=== PATIENT | female | born 1935 | race Asian ===

== ENCOUNTER 2020-12-14 14:59 | Inpatient (IN) | payer MEDICARE, OTHER ==
[~2020-12-14] VITALS: Ht 167.6 cm; Wt 69.9 kg
--- NOTE | 2020-12-14 15:42 | NUR ---
Called Lab for Covid rapid test
[2020-12-14 16:20] LABS: BILIRUBIN,URINE SMALL (NEGATIVE); COLOR,URINE YELLOW (YELLOW); LEUKOCYTE ESTERASE ,URINE MODERATE (NEGATIVE); NITRITE, URINE NEGATIVE (NEGATIVE); PH,URINE 5.5 (5.0-8.0); PROTEIN,URINE NEGATIVE (NEGATIVE); UGLUCOSE 100 MG/DL mg/dL (NEGATIVE); UROBILINOGEN,URINE 0.2 EU/dL (0.2)
[2020-12-14] MEDS ORDERED: ATOR40TA PO (16:22)
[2020-12-14] MEDS ORDERED: LEVE500T9 PO (16:22)
[2020-12-14] MEDS ORDERED: MAG355OR18 PO (16:22)
[2020-12-14] MEDS ORDERED: CYCL30DR OP (16:22)
[2020-12-14] MEDS ORDERED: MULT-447 PO (16:22)
[2020-12-14] MEDS ORDERED: MAGN400O6 PO (16:22)
[2020-12-14] MEDS ORDERED: ASCO500C17 PO (16:22)
[2020-12-14] MEDS ORDERED: CALC-1159 PO (16:22)
[2020-12-14] MEDS ORDERED: INSU100V9 IJ (16:22)
[2020-12-14] MEDS ORDERED: MEMA10TA PO (16:22)
[2020-12-14] MEDS ORDERED: ACET325T53 PO (16:22)
[2020-12-14] MEDS ORDERED: ESCI10TA PO (16:22)
[2020-12-14] MEDS ORDERED: DEXA4TAB PO (16:22)
[2020-12-14] MEDS ORDERED: VALS40TA4 PO (16:22)
[2020-12-14] MEDS ORDERED: POLY17PO4 PO (16:22)
[2020-12-14] MEDS ORDERED: RIFA300C4 PO (16:22)
[2020-12-14] MEDS ORDERED: DOCU-141 PO (16:22)
[2020-12-14] MEDS ORDERED: MELA3TAB41 PO (16:22)
[2020-12-14] MEDS ORDERED: ETHA400T8 PO (16:22)
[2020-12-14] MEDS ORDERED: CRAN400C PO (16:22)
[2020-12-14] MEDS ORDERED: AMLO5TAB4 PO (16:22)
[2020-12-14] MEDS ORDERED: QUET25TA PO ×2 (16:22)
[2020-12-14] MEDS ORDERED: AZIT500T PO (16:22)
[2020-12-14] MEDS ORDERED: ASPI-1169 PO (16:22)
[2020-12-14] MEDS ORDERED: INSU100V7 SQ (16:22)
[2020-12-14] MEDS ORDERED: PROP80CA51 PO (16:22)
[2020-12-14 16:26] LABS: BACTERIA,URINE 4+ /HPF (None Seen); SQUAMOUS EPITHELIAL CELL,UR Few /HPF (None Seen); WBC,URINE TOO NUMEROUS TO COUN /HPF (0-3)
[2020-12-14 16:27] LABS: YEAST,URINE Few /HPF (None Seen)
[2020-12-14 17:21] LABS: BASOPHILS # (AUTO) 0.1 K/uL (0.0-0.2); BASOPHILS % (AUTO) 0.8 % (0.0-2.0); EOSINOPHILS % (AUTO) 0.9 % (0.0-6.0); HEMATOCRIT 44 % (33-45); HEMOGLOBIN 14.7 g/dL (11.5-14.8); LYMPHOCYTES # (AUTO) 1.9 K/uL (0.8-4.8); LYMPHOCYTES % (AUTO) 26.7 % (20.0-44.0); MEAN CORPUSCULAR HGB CONC 34 g/dl (31.0-36.0); MEAN CORPUSCULAR VOLUME 96 fL (82-100); MONOCYTES # (AUTO) 0.7 K/uL (0.1-1.30); MONOCYTES % (AUTO) 10.3 % (2.0-12.0); NEUTROPHILS # (AUTO) 4.3 K/uL (1.8-8.9); NEUTROPHILS % (AUTO) 61.3 % (43.0-81.0); PLATELET COUNT (AUTO) 145 K/uL (150-450); RED BLOOD CELL COUNT(AUTO) 4.54 MIL/uL (4.0-5.2)
[2020-12-14 17:29] LABS: CALCIUM, SERUM 8.4 mg/dL (8.5-10.1); CARBON DIOXIDE 31 mmol/L (21-32); CHLORIDE 102 mmol/L (98-107); CREATININE 0.6 mg/dL (0.6-1.3); GLUCOSE 204 mg/dL (74-106); POTASSIUM 3.5 mmol/L (3.5-5.1); SODIUM SERUM 142 mmol/L (136-145); UREA NITROGEN, BLOOD 15 mg/dL (7-18)
[2020-12-14] MEDS ORDERED: CEFTRIAXONE 1 G in IV D5W 50 ML IV ONE (17:30)
[2020-12-14] MEDS ORDERED: IV NS 0.9% 1,000 ML IV ONE (17:30)
--- NOTE | 2020-12-14 17:46 | NUR ---
SOLITARIO FROM [facility] C/O INCREASED CONFUSION AND AGITATION REFUSED ALL PATIENT CARE. THE PATIENT IS NOTED SCREAMING WITHOUT APPARENT REASON. THE PATIENT IS ALERT AND ORIENTED TO SELF. RESPIRATION REGULAR AND UNLABORED. DENIES PAIN. THE PATIENT IS IN NO APPARENT DISTRESS. ATTACHED TO THE MONITOR. WARM BLANKET PROVIDED FOR COMFORT. WILL CONTINUE TO MONITOR THE PATIENT.
[2020-12-14 17:50] LABS: ALANINE AMINOTRANSFERASE 61 U/L (12-78); ALBUMIN 3.1 g/dL (3.4-5.0); ALKALINE PHOSPHATASE 44 U/L (46-116); ASPARTATE AMINOTRANSFERASE 38 U/L (15-37); BILIRUBIN,DIRECT 0.2 mg/dL (0.0-0.2); BILIRUBIN,TOTAL 0.5 mg/dL (0.2-1.0); TOTAL PROTEIN, SERUM 6.5 g/dL (6.4-8.2)
[2020-12-14 17:56] LABS: ACETAMINOPHEN < 10 ug/ml (10-30); ALCOHOL, BLOOD < 3 mg/dL (0-0)
[2020-12-14] MEDS ORDERED: CEFTRIAXONE 1GM BAG (ER ONLY) 50 ML IV ONE (18:04)
[2020-12-14] MEDS ORDERED: QUETIAPINE FUMARATE 25 MG TABLET PO STA (18:30)
[2020-12-14] MEDS ORDERED: LORAZEPAM 1 MG TABLET PO ONE (18:30)
[2020-12-14] MEDS ORDERED: ASPIRIN 300 MG/SUPP.RECT RC ONE (18:30)
[2020-12-14] MEDS ORDERED: LORAZEPAM 0.5 MG TABLET ONE (18:41)
--- NOTE | 2020-12-14 19:10 | NUR ---
REPORT GIVEN TO NURSE JOHNSON FOR LC
--- NOTE | 2020-12-14 19:10 | NUR ---
PT PLACED ON 2L O2 NC FOR COMFORT SATURATING 98%
[2020-12-14] MEDS ORDERED: IV NS 0.9% 250 ML IV ONE (20:37)
[2020-12-14] MEDS ORDERED: IOHEXOL-350 100 ML VIAL IV ONE (20:37)
[2020-12-14] MEDS ORDERED: POLYETHYLENE GLYCOL 3350 17 GM POWD.PACK PO PRN (21:30)
[2020-12-14] MEDS ORDERED: Z GUARD REMEDY 2 OZ OINT TP PRN (21:30)
[2020-12-14] MEDS ORDERED: ONDANSETRON HCL/PF 4 MG/2 ML VIAL IVP PRN (21:30)
[2020-12-14] MEDS ORDERED: MAGNESIUM HYDROXIDE 30 ML UDC PO PRN ×2 (21:30)
[2020-12-14] MEDS ORDERED: DEXTROSE 50%-WATER 50 ML DISP.SYRIN IV PRN (21:30)
[2020-12-14] MEDS ORDERED: ACETAMINOPHEN 325 MG TABLET PO PRN ×2 (21:30)
[2020-12-14] MEDS ORDERED: MAG HYDROX/AL HYDROX/SIMETH 30 ML UDC PO PRN ×2 (21:30)
--- NOTE | 2020-12-14 22:19 | NUR ---
called jen to have images read
--- NOTE | 2020-12-14 22:49 | NUR ---
REPORT GIVEN TO PARIS CODY
--- NOTE | 2020-12-14 22:51 | NUR ---
PT BEING TRANSFERRED TO 107 PER ACLS
[2020-12-14] MEDS ORDERED: ETHAMBUTOL HCL (400 MG) 400 MG TABLET PO SCH (23:30)
[2020-12-15] VITALS: BP 148/83
[2020-12-15] MEDS: FLUCONAZOLE (100 MG) 100 MG TABLET PO SCH ×2 (00:06→08:59)
[2020-12-15] MEDS: ATORVASTATIN 40 MG TABLET PO SCH ×2 (00:06→21:27)
[2020-12-15] MEDS: ZOLPIDEM TARTRATE 5 MG TABLET PO PRN (00:06)
[2020-12-15] MEDS: QUETIAPINE FUMARATE 25 MG TABLET PO SCH ×3 (00:28→21:30)
[2020-12-15] MEDS: *INSULIN REGULAR(HUMULIN R)HUM 100 UNIT/ML VIAL SQ PRN ×3 (00:30→21:53)
[2020-12-15] MEDS: BLOOD SUGAR DIAGNOSTIC 1 EACH STRIP VI SCH ×5 (00:31→21:55)
[2020-12-15 04:00] VITALS: BP 144/79
[2020-12-15] MEDS ORDERED: QUETIAPINE FUMARATE 25 MG TABLET PO SCH ×2 (06:00→09:00)
[2020-12-15 06:12] LABS: BASOPHILS % (AUTO) 0.4 % (0.0-2.0); EOSINOPHILS % (AUTO) 1.3 % (0.0-6.0); HEMATOCRIT 41 % (33-45); HEMOGLOBIN 13.5 g/dL (11.5-14.8); LYMPHOCYTES # (AUTO) 1.5 K/uL (0.8-4.8); LYMPHOCYTES % (AUTO) 26.8 % (20.0-44.0); MEAN CORPUSCULAR HGB CONC 33 g/dl (31.0-36.0); MEAN CORPUSCULAR VOLUME 97 fL (82-100); MONOCYTES # (AUTO) 0.7 K/uL (0.1-1.30); NEUTROPHILS # (AUTO) 3.3 K/uL (1.8-8.9); NEUTROPHILS % (AUTO) 59.5 % (43.0-81.0); PLATELET COUNT (AUTO) 151 K/uL (150-450); WHITE BLOOD COUNT (AUTO) 5.5 K/uL (4.3-11.0)
[2020-12-15 07:26] LABS: CHOLESTEROL 181 mg/dL (<200); HDL CHOLESTEROL 72 mg/dL (40-60); LDL 82 mg/dL (0-99); TRIGLYCERIDES 185 mg/dL (30-150)
--- NOTE | 2020-12-15 07:26 | NUR ---
RN notes Admitted an female from ER via stretcher with diagnosis of UTI. Patient has a schizoaffective disorder. Alert but confused. Able to make needs known verbally. NO distress noted. Breathing even and unlabored. On O2 at 2lpm via nasal cannula tolerating well. No complaint of pain or discomfort. Vital signs wnl. Endorsed to next shift for continuity of care.
[2020-12-15 07:29] LABS: CALCIUM, SERUM 7.9 mg/dL (8.5-10.1); CARBON DIOXIDE 28 mmol/L (21-32); CHLORIDE 103 mmol/L (98-107); CREATININE 0.5 mg/dL (0.6-1.3); GLUCOSE 188 mg/dL (74-106); MAGNESIUM 1.8 mg/dL (1.8-2.4); PHOSPHORUS 2.8 mg/dL (2.5-4.9); POTASSIUM 3.3 mmol/L (3.5-5.1); SODIUM SERUM 141 mmol/L (136-145); UREA NITROGEN, BLOOD 10 mg/dL (7-18)
--- NOTE | 2020-12-15 07:39 | NUR ---
RN OPENING NOTES; RECEIVED PT AWAKE, SCREAMING. PT DENIES ANY PAIN OR SHORNESS OF BREATH. PT AX1. PT HAS SLIGHT CONFUSION. SAFETY MEASURES RENDERED, BED IN LOWEST POS. LOCKED WITH CALL WITHIN REACH. WILL CONTINUE TO MONITOR.
[2020-12-15] MEDS: INSULIN REGULAR, HUMAN 100 UNIT/ML 3 ML VIAL SQ PRN ×3 (07:48→16:44)
[2020-12-15 08:00] VITALS: BP 120/63
[2020-12-15] MEDS: MULTIVIT W/MINERALS 1 TAB TABLET PO SCH (08:58)
[2020-12-15] MEDS: DEXAMETHASONE 4 MG TABLET PO SCH ×2 (08:59→17:13)
[2020-12-15] MEDS: AMLODIPINE BESYLATE 5 MG TABLET PO SCH (08:59)
[2020-12-15] MEDS: CALCIUM CARBONATE (1250) 500 MG TABLET PO SCH (08:59)
[2020-12-15] MEDS: SULFAMETH/TRIMETH 800/160 MG 1 UDTAB TABLET PO SCH ×2 (08:59→21:27)
[2020-12-15] MEDS: ASPIRIN 81 MG TAB.CHEW PO SCH (08:59)
[2020-12-15] MEDS: LEVETIRACETAM (250 MG) 250 MG TABLET PO SCH ×2 (08:59→17:13)
[2020-12-15] MEDS ORDERED: CRANBERRY PO SCH (09:00)
[2020-12-15] MEDS ORDERED: PROPRANOLOL HCL 40 MG TABLET PO SCH (09:00)
[2020-12-15] MEDS ORDERED: MEMANTINE HCL 5 MG TABLET PO SCH (09:00)
[2020-12-15] MEDS: ENOXAPARIN SODIUM 40 MG/0.4 ML DISP.SYRIN SQ SCH (09:01)
[2020-12-15] MEDS: INSULIN GLARGINE, 100 UNIT/ML CARTRIDGE SQ SCH (09:01)
[2020-12-15] MEDS: VALSARTAN 40 MG TABLET PO SCH (09:06)
[2020-12-15] MEDS: ETHAMBUTOL HCL (400 MG) 400 MG TABLET PO SCH (09:06)
[2020-12-15] MEDS: RIFAMPIN 300 MG CAPSULE PO SCH ×2 (09:06→09:08)
[2020-12-15] MEDS ORDERED: POTASSIUM CHLORIDE 20 MEQ TAB.PRT.SR PO SCH (10:00)
[2020-12-15] MEDS ORDERED: ESCITALOPRAM OXALATE (10 MG) 10 MG TABLET PO SCH (10:30)
[2020-12-15] MEDS: METOPROLOL TARTRATE 50 MG TABLET PO SCH ×2 (11:19→17:14)
[2020-12-15 12:00] VITALS: BP 116/64
[2020-12-15 16:00] VITALS: BP 132/66
[2020-12-15] MEDS: ASCORBIC ACID 500 MG TABLET PO SCH (17:13)
[2020-12-15] MEDS: DOCUSATE SODIUM 100 MG CAPSULE PO SCH (17:13)
--- NOTE | 2020-12-15 17:44 | NUR ---
RN NOTES; ATTEMPTED TO GET CONSENT FOR CT HEAD W WO CONTRAST FROM DAUGHTER GARRET. DAUGHTER STATED PT JUST HAD THE SAME PROCEDURE DONE AT [facility] RECENTLY. DAUGHTER IS CONCERNED THAT PT WILL BE EXPOSED TO TO MUCH CONTRAST. NOTIFIED. STATED FOR DAUGHTER TO FAX REPORT TO [facility]. MD GIVEN DAUGHTERS NUMBER. WILL ENDORSE TO NEXT RN ON SHIFT.
--- NOTE | 2020-12-15 18:10 | NUR ---
RN NOTES; PT IN BED SLEEPING. PT HAS EPISODES OF ALERTNESS AND CONFUSION. NO SOB NOTED, PT ON 2L VIA NC SATING AT 96-98%. ALL MEDICATIONS GIVEN AND TOLERATED WELL. NO SIGNIFICANT CHANGES IN PT HEALTH DURING SHIFT. SAFETY MEASURES RENDERED, PT KEPT CLEAN, DRY, AND COMFORTABLE. BED LOCKED, IN LOWEST POS. SIDE RAILS UP WITH CALL LIGHT WITHIN REACH. ENDORSED TO DIRECTOR MICROBIOLOGY RN IN STABLE CONDITION.
--- NOTE | 2020-12-15 19:18 | NUR ---
RN NOTES RECEIVED PT ASLEEP. PT DENIES ANY PAIN OR SHORTNESS OF BREATH. PT AX1. ON OXYGEN 2L VIA NASAL CANULA PT HAS SLIGHT CONFUSION. SAFETY MEASURES RENDERED, BED IN LOWEST POS. LOCKED WITH CALL WITHIN REACH. WILL CONTINUE TO MONITOR.
--- NOTE | 2020-12-15 20:18 | NUR ---
RN NOTES RECEIVED CALL FROM DAUGHTER GARRET PER GARRET PT DID NOT HAVE A CT SCAN WITH CONTRAST JUST WITHOUT INFORMATION WAS FAXED BY GARRET AND RECEIVED PLACED IN PTS CHART. OBTAINED CONSENT FOR CT WITH CONTRAST FROM GARRET VIA PHONE WITNESSED BY PARIS PARSONS WILL CONTINUE TO MONITOR.
[2020-12-15] MEDS ORDERED: IOHEXOL-300 100 ML VIAL IV ONE (20:34)
[2020-12-15] MEDS ORDERED: MELATONIN 3 MG TABLET PO SCH ×2 (22:00)
[2020-12-15 22:19] VITALS: BP 95/53
[2020-12-16 01:12] VITALS: BP 104/59
[2020-12-16 04:36] VITALS: BP 107/61
[2020-12-16] MEDS: METOPROLOL TARTRATE 50 MG TABLET PO SCH ×4 (05:08→17:13)
--- NOTE | 2020-12-16 06:30 | NUR ---
RN NOTES PT KEEPS SCREAMING SHES HUNGRY OFFERED PT SNACKS PT REFUSED PT KEEPS SCREAMING SHE WANTS HER BREAKFAST SNACKS OFFERED X3 REFUSED X3 KEEPS SCREAMING PT STATED " YOU TOLD GARRET VILLALTAS NOT BY DAUGHTER!! " GIVE ME MY BREAKFAST NOW!!' TRIED TO REORIENT PT, LET HER KNOW BREAKFAST IS SERVED AT 0730 PT SCREAMED ''' GET OUT OF MY HOUSE !!" WILL CONTINUE TO MONITOR.
--- NOTE | 2020-12-16 06:34 | NUR ---
RN NOTES PT AWAKE DENIES ANY PAIN OR SHORTNESS OF BREATH. PT AX1 CONFUSED. ON OXYGEN 2L VIA NASAL CANULA ALL DUE MEDS GIVEN AND TOLERATED WELL. ALL NURSING NEEDS MET THROUGHOUT THE SHIFT SAFETY MEASURES RENDERED, BED IN LOWEST POS. LOCKED WITH CALL WITHIN REACH. WILL ENDORSE CARE TOD AY SHIFT NURSE.
[2020-12-16 07:03] LABS: CALCIUM, SERUM 8.7 mg/dL (8.5-10.1); CREATININE 0.6 mg/dL (0.6-1.3); POTASSIUM 3.8 mmol/L (3.5-5.1)
--- NOTE | 2020-12-16 07:30 | NUR ---
RN OPENING NOTES RECEIVED PATIENT AWAKE IN BED, YELLING AND SCREAMING. ALERT AND ORIENTED X2-3.NO SOB. BREATHING IS EVEN AND UNLABORED. NO S/S OF DISTRESS NOTED. PT ON 2L O2 NC WITH 98% SAT. IV ACCESS RHAND #20 PATENT AND INTACT. SAFETY MEASURES IN PLACE WITH BED LOCKED AT LOW POSITION AND SIDE RAILS UP X2. CALL LIGHT IS WITHIN REACH. WILL CONTINUE TO MONITOR THROUGHOUT SHIFT.
[2020-12-16] MEDS: BLOOD SUGAR DIAGNOSTIC 1 EACH STRIP VI SCH ×4 (07:40→21:15)
[2020-12-16] MEDS: *INSULIN REGULAR(HUMULIN R)HUM 100 UNIT/ML VIAL SQ PRN ×2 (07:46→21:18)
[2020-12-16 08:00] VITALS: BP 120/63
[2020-12-16] MEDS: ENOXAPARIN SODIUM 40 MG/0.4 ML DISP.SYRIN SQ SCH (08:40)
[2020-12-16] MEDS: MULTIVIT W/MINERALS 1 TAB TABLET PO SCH (08:41)
[2020-12-16] MEDS: ASPIRIN 81 MG TAB.CHEW PO SCH (08:41)
[2020-12-16] MEDS: CALCIUM CARBONATE (1250) 500 MG TABLET PO SCH (08:41)
[2020-12-16] MEDS: DEXAMETHASONE 4 MG TABLET PO SCH ×2 (08:41→17:12)
[2020-12-16] MEDS: SULFAMETH/TRIMETH 800/160 MG 1 UDTAB TABLET PO SCH ×2 (08:41→21:00)
[2020-12-16] MEDS: LEVETIRACETAM (250 MG) 250 MG TABLET PO SCH ×2 (08:41→17:12)
[2020-12-16] MEDS: AMLODIPINE BESYLATE 5 MG TABLET PO SCH (08:41)
[2020-12-16] MEDS: FLUCONAZOLE (100 MG) 100 MG TABLET PO SCH (08:41)
[2020-12-16] MEDS: QUETIAPINE FUMARATE 25 MG TABLET PO SCH ×3 (08:42→21:00)
[2020-12-16] MEDS: INSULIN GLARGINE, 100 UNIT/ML CARTRIDGE SQ SCH (08:44)
[2020-12-16] MEDS: VALSARTAN 40 MG TABLET PO SCH (08:52)
[2020-12-16] MEDS: INSULIN REGULAR, HUMAN 100 UNIT/ML 3 ML VIAL SQ PRN ×2 (11:39→16:41)
[2020-12-16 12:00] VITALS: BP 139/79
[2020-12-16 16:00] VITALS: BP 139/79
[2020-12-16] MEDS: DOCUSATE SODIUM 100 MG CAPSULE PO SCH (17:12)
[2020-12-16] MEDS: ASCORBIC ACID 500 MG TABLET PO SCH (17:12)
--- NOTE | 2020-12-16 18:34 | NUR ---
RN CLOSING NOTES PT IS BED, AWAKE AND SPEAKING TO DAUGHTER OVER THE PHONE. NO S/S OF DISTRESS NOTED. NO SOB. ALL NEEDS MET THROUGHOUT SHIFT. IV ACCESS RHAND#20 PATENT, INTACT AND FLUSHING WELL. SAFETY MEASURES MAINTAINED. CALL LIGHT IS WITHIN REACH. WILL ENDORSE CONTINUITY OF CARE TO ONCOMING SHIFT.
--- NOTE | 2020-12-16 19:15 | NUR ---
RN OPENING NOTE PT RESTING IN BED, EASILY AROUSABLE TO STIMULI. A/OX2-3, ABLE TO VERBALIZE NEEDS. SHE DENIES ANY PAIN OR DISCOMFORT AT THIS TIME. RESPIRATIONS EVEN/UNLABORED. ON 02 @2LPM VIA NC. IV SITE: R-HAND #20G INTACT/PATENT AND FLUSHES WELL. KEPT PT COMFORTABLE IN BED. NO ACUTE DISTRESS NOTED. SAFETY MEASURES IN PLACE, BED IN LOWEST LOCKED POSITION, S/R UPX2, CALL LIGHT WITHIN REACH. WILL CONT TO MONITOR.
[2020-12-16 20:00] VITALS: BP 121/66
[2020-12-16] MEDS: ATORVASTATIN 40 MG TABLET PO SCH (21:00)
--- NOTE | 2020-12-16 21:30 | NUR ---
RN NOTE PT FOR TRANSFER TO [facility] RM 310-2. REPORT GIVEN TO EDIS FOR CONTINUITY OF CARE. PT ALERT/AWAKE, IN NO ACUTE DISTRESS. MEDS GIVEN ORDERED. ALL NEEDS ATTENDED TO. WILL CONT TO MONITOR.
--- NOTE | 2020-12-16 21:46 | NUR ---
RN NOTE TRANSFERRED TO RM.[id number]
--- NOTE | 2020-12-16 22:15 | NUR ---
RN NOTE PT TRANSFER TO [id number] CANCELLED. PT BACK IN RM 107 D/T PT WITH PCR TEST PENDING. DAUGHTER, GARRET, MADE AWARE.
[2020-12-16] MEDS: ZOLPIDEM TARTRATE 5 MG TABLET PO PRN (23:22)
[2020-12-17] MEDS: METOPROLOL TARTRATE 50 MG TABLET PO SCH ×5 (00:33→18:00)
[2020-12-17 04:00] VITALS: BP 132/65
[2020-12-17] MEDS: INSULIN REGULAR, HUMAN 100 UNIT/ML 3 ML VIAL SQ PRN ×3 (06:24→17:41)
[2020-12-17] MEDS: BLOOD SUGAR DIAGNOSTIC 1 EACH STRIP VI SCH ×4 (06:44→22:17)
--- NOTE | 2020-12-17 07:08 | NUR ---
RN CLOSING NOTE PT RESTING COMFORTABLY IN BED, EASILY AROUSABLE TO STIMULI. ABLE TO VERBALIZE NEEDS. DENIES PAIN/DISCOMFORT AT THIS TIME. ON O2 @2LPM VIA NC. NO SOB NOTED. ALL NEEDS ATTENDED TO. NO ACUTE EVENTS DURING THE SHIFT. ENDORSED TO NEXT SHIFT NURSE.
--- NOTE | 2020-12-17 07:32 | NUR ---
RN OPENING NOTE PATIENT RECEIVED IN BED, SLEEPING. PATIENT ON 2L O2 NC WITH NO SIGNS OF LABORED BREATHING AT THIS TIME. R HAND 20G PIV IN PLACE. BED LOCKED AND IN LOWEST POSITION, 3 SIDE RAILS UP, CALL LIGHT WITHIN REACH. WILL CONTINUE TO MONITOR.
[2020-12-17 08:00] VITALS: BP 122/68
[2020-12-17] MEDS: MULTIVIT W/MINERALS 1 TAB TABLET PO SCH (08:53)
[2020-12-17] MEDS: ASPIRIN 81 MG TAB.CHEW PO SCH (08:53)
[2020-12-17] MEDS: ENOXAPARIN SODIUM 40 MG/0.4 ML DISP.SYRIN SQ SCH (08:53)
[2020-12-17] MEDS: SULFAMETH/TRIMETH 800/160 MG 1 UDTAB TABLET PO SCH ×2 (08:53→22:17)
[2020-12-17] MEDS: LEVETIRACETAM (250 MG) 250 MG TABLET PO SCH ×2 (08:54→17:00)
[2020-12-17] MEDS: DEXAMETHASONE 4 MG TABLET PO SCH ×2 (08:54→17:00)
[2020-12-17] MEDS: CALCIUM CARBONATE (1250) 500 MG TABLET PO SCH (08:54)
[2020-12-17] MEDS: QUETIAPINE FUMARATE 25 MG TABLET PO SCH ×3 (08:54→22:17)
[2020-12-17] MEDS: AMLODIPINE BESYLATE 5 MG TABLET PO SCH (08:55)
[2020-12-17] MEDS: VALSARTAN 40 MG TABLET PO SCH (08:56)
[2020-12-17] MEDS: INSULIN GLARGINE, 100 UNIT/ML CARTRIDGE SQ SCH (08:58)
[2020-12-17 12:00] VITALS: BP 122/68
--- NOTE | 2020-12-17 12:16 | NUR ---
RN NOTE PATIENT REFUSED SCHEDULED MEDICATION AND INSULIN. BENEFITS OF THE MEDICATION AND RISKS OF REFUSAL EXPLAINED. PATIENT CONTINUES TO REFUSE. WILL CONTINUE TO MONITOR.
--- NOTE | 2020-12-17 14:35 | NUR ---
RN NOTE PER DR. HYLTON ORDER, OKAY TO GIVE ATIVAN 0.5MG Q6H PRN FOR AGITATION.
[2020-12-17] MEDS ORDERED: LORAZEPAM INJ 2 MG/ML VIAL IV PRN (15:00)
[2020-12-17 16:00] VITALS: BP 128/75
[2020-12-17] MEDS: ASCORBIC ACID 500 MG TABLET PO SCH (18:00)
[2020-12-17] MEDS: DOCUSATE SODIUM 100 MG CAPSULE PO SCH (18:00)
--- NOTE | 2020-12-17 18:00 | NUR ---
RN NOTES UNABLE TO GIVE 1700 AND 1800 MEDS BECAUSE PT IS SLEEPING.
--- NOTE | 2020-12-17 19:29 | NUR ---
RN CLOSING NOTE PATIENT IN BED, ASLEEP. ON 2L O2 NC WITH NO SIGNS OF LABORED BREATHING. R HAND PIV IN PLACE AND PATENT. BED LOCKED AND IN LOWEST POSITION, 3 SIDE RAILS UP, CALL LIGHT WITHIN REACH. WILL ENDORSE TO TIMBER SELECTOR NURSE.
[2020-12-17 20:00] VITALS: BP 90/60
[2020-12-17] MEDS: ATORVASTATIN 40 MG TABLET PO SCH (22:17)
--- NOTE | 2020-12-17 22:30 | NUR ---
RN NOTE PATIENT IS REFUSING NIGHT TIME MEDICATIONS AND IS AGITATED AND PUSHING MY HAND AWAY. STATES SHE JUST WANTS TO SLEEP. EXPLAINED TO HER 3X THE IMPORTANCE OF THESE MEDICATIONS BUT PERSISTENTLY YELLS "NO". TRIED OTHER RN TO GIVE MEDS, STILL REFUSED. INFORMED BULK TANK CAR UNLOADER, FLORY, REGARDING THE PATIENTS ANTIBIOTIC, BACTRIM PO. PER HER ORDER, NO NEW ORDER AND TO FOLLOW UP AGAIN IN THE MORNING. PATIENT RESTING WITH EYES CLOSED AT THIS TIME. NURSING AID ASSISTED PATIENT WITH DINNER EARLIER. ATE 80 PERCENT. HOB ELEVATED 45 DEGREES TO PREVENT ASPIRATION. WILL CONTINUE TO MONITOR PATIENT.
[2020-12-17] MEDS: *INSULIN REGULAR(HUMULIN R)HUM 100 UNIT/ML VIAL SQ PRN (23:09)
[2020-12-18] MEDS: METOPROLOL TARTRATE 50 MG TABLET PO SCH ×3 (00:05→12:09)
[2020-12-18 04:00] VITALS: BP 112/49
--- NOTE | 2020-12-18 06:42 | NUR ---
RN NOTE PATIENT PERSISTENTLY REFUSED AM METOPROLOL. EXPLAINED THE RISK AND BENEFITS TO THE PATIENT THREE TIMES. CONTACTED HOUSING MANAGER, LEONCIO RUTH. PSYCH CONSULT. NEW ORDER NOTED AND CARRIED OUT.
--- NOTE | 2020-12-18 06:50 | NUR ---
RN NOTE NO SIGNIFICANT CHANGES DURING SHIFT. PATIENT AWAKE AT THIS TIME. ON LOW FLOW OXYGEN, NO SOB NOTED, NO COUGH NOTED. KEPT CLEAN AND DRY AT ALL TIMES. ALL NEEDS ATTENDED. BED IN LOCKED POSITION. CALL LIGHT WITHIN REACH.
--- NOTE | 2020-12-18 07:22 | NUR ---
RN OPENING NOTE PATIENT RECEIVED IN BED, AWAKE, A&OX1. PATIENT ON 2L O2 NC WITH NO SIGNS OF LABORED BREATHING AT THIS TIME. R HAND 20G PIV IN PLACE. BED LOCKED AND IN LOWEST POSITION, 3 SIDE RAILS UP, CALL LIGHT WITHIN REACH. WILL CONTINUE TO MONITOR.
[2020-12-18] MEDS: BLOOD SUGAR DIAGNOSTIC 1 EACH STRIP VI SCH ×2 (07:30→12:06)
[2020-12-18] MEDS ORDERED: AZITHROMYCIN 250 MG TABLET PO SCH (08:24)
[2020-12-18] MEDS: LEVETIRACETAM (250 MG) 250 MG TABLET PO SCH (08:55)
[2020-12-18] MEDS: DEXAMETHASONE 4 MG TABLET PO SCH (08:55)
[2020-12-18] MEDS: SULFAMETH/TRIMETH 800/160 MG 1 UDTAB TABLET PO SCH (08:55)
[2020-12-18] MEDS: CALCIUM CARBONATE (1250) 500 MG TABLET PO SCH (08:56)
[2020-12-18] MEDS: AMLODIPINE BESYLATE 5 MG TABLET PO SCH (08:56)
[2020-12-18] MEDS: ASPIRIN 81 MG TAB.CHEW PO SCH (08:56)
[2020-12-18] MEDS: MULTIVIT W/MINERALS 1 TAB TABLET PO SCH (08:56)
[2020-12-18] MEDS: VALSARTAN 40 MG TABLET PO SCH (08:57)
[2020-12-18] MEDS: QUETIAPINE FUMARATE 25 MG TABLET PO SCH (08:57)
[2020-12-18] MEDS: ETHAMBUTOL HCL (400 MG) 400 MG TABLET PO SCH (08:59)
[2020-12-18] MEDS: RIFAMPIN 300 MG CAPSULE PO SCH (08:59)
[2020-12-18] MEDS: INSULIN GLARGINE, 100 UNIT/ML CARTRIDGE SQ SCH (09:01)
[2020-12-18] MEDS: ENOXAPARIN SODIUM 40 MG/0.4 ML DISP.SYRIN SQ SCH (09:01)
[2020-12-18] MEDS: INSULIN REGULAR, HUMAN 100 UNIT/ML 3 ML VIAL SQ PRN ×2 (09:02→12:10)
[2020-12-18 12:09] VITALS: BP 118/60
--- NOTE | 2020-12-18 15:37 | NUR ---
RN NOTE PATIENT PICKED UP BY EMT FOR TRANSFER TO [facility]. PHONE REPORT GIVEN TO PEG. PATIENT MEDICALLY STABLE AT TIME OF DISCHARGE.
[2020-12-18] MEDS ORDERED: QUETIAPINE FUMARATE 25 MG TABLET PO SCH (17:00)
[2020-12-19] MEDS ORDERED: VENLAFAXINE XR 37.5 MG CAP.SR.24H PO SCH (09:00)
== END 2020-12-18 16:00 | DRG 193 ==
LOC: ER 15:42 → TELE1 20:57 → MEDSG1 12-16 15:59 → MED 12-16 21:43 → MEDSG1 12-16 22:08
PROVIDERS: ADMIT Registered Nurse; ATTEND Internal Medicine
DX: J15.9 Unspecified bacterial pneumonia (principal); G92.8 Other toxic encephalopathy; I21.A1 Myocardial infarction type 2; G93.6 Cerebral edema; F33.3 Major depressive disorder, recurrent, severe with psychotic symptoms; N39.0 Urinary tract infection, site not specified; G81.90 Hemiplegia, unspecified affecting unspecified side; R45.851 Suicidal ideations; E11.9 Type 2 diabetes mellitus without complications; G30.9 Alzheimer's disease, unspecified; F02.80 Dementia in other diseases classified elsewhere, unspecified severity, without behavioral disturbance, psychotic disturbance, mood disturbance, and anxiety; Z20.822 Contact with and (suspected) exposure to COVID-19; I25.10 Atherosclerotic heart disease of native coronary artery without angina pectoris; Z85.118 Personal history of other malignant neoplasm of bronchus and lung; Z85.841 Personal history of malignant neoplasm of brain; I10 Essential (primary) hypertension; I70.0 Atherosclerosis of aorta; E78.5 Hyperlipidemia, unspecified; Z88.1 Allergy status to other antibiotic agents; Z88.8 Allergy status to other drugs, medicaments and biological substances; Z79.4 Long term (current) use of insulin; Z79.2 Long term (current) use of antibiotics; Z79.82 Long term (current) use of aspirin; B96.89 Other specified bacterial agents as the cause of diseases classified elsewhere; Z92.3 Personal history of irradiation; Z86.11 Personal history of tuberculosis; Z79.899 Other long term (current) drug therapy; F06.8 Other specified mental disorders due to known physiological condition; E66.9 Obesity, unspecified; Z68.24 Body mass index [BMI] 24.0-24.9, adult
CPT/HCPCS: 36415; 70470-TC; 71045-TC; 80048-TC; 80061-TC; 80076-TC; 80177; 81001; 82962-TC; 83605-TC; 83735-TC; 83880; 84100-TC; 84484-TC; 85025-TC; 85378-TC; 87040-TC; 87081-TC; 87086-TC; 93307-TC; 93970-TC; C9803; G0378; G0480; J0696; J1650; J1815; J2060; J7030; J7050; J7060; J8540; Q9967; U0003

== ENCOUNTER 2022-03-22 17:50 | Inpatient (IN) | payer MEDICARE, OTHER ==
[~2022-03-22] VITALS: Ht 162.6 cm; Wt 59.0 kg
[~2022-03-22 17:50] MED LIST: ACET325T53 PO; AMLO5TAB4 PO; ASCO500C17 PO; ASPI-1169 PO; ATOR40TA PO; AZIT500T PO; CALC-1159 PO; CRAN400C PO; CYCL30DR OP; DEXA4TAB PO; DOCU-141 PO; ESCI10TA PO; ETHA400T8 PO; INSU100V7 SQ; INSU100V9 IJ; LEVE500T9 PO; MAG355OR18 PO; MAGN400O6 PO; MELA3TAB41 PO; MEMA10TA PO; MULT-447 PO; POLY17PO4 PO; PROP80CA51 PO; QUET25TA PO; RIFA300C4 PO; VALS40TA4 PO
--- NOTE | 2022-03-22 17:55 | NUR ---
SOLITARIO 78 FROM [facility] C/O TACHYCARDIA AND LOW 02 SAT. HR 116. 02 SAT 98 ON 4L NC. PT IS AAOX1. PLACED IN BED AND MONITOR. AWAITING MD ORDERS.
--- NOTE | 2022-03-22 18:15 | NUR ---
ESTABLISHED IV 20G RIGHT HAND. BLOOD DRAWN INCLUDING CULTURES, TORRES CATHETER PLACED, URINE COLLECTED AND SENT TO LAB.
[2022-03-22] MEDS ORDERED: IV NS 0.9% 1,000 ML BAG IV ONE (18:30)
--- NOTE | 2022-03-22 18:49 | NUR ---
PT CURRENTLY UNDER TREATMENT FOR SCABIES.
--- NOTE | 2022-03-22 18:50 | NUR ---
COVID SWAB COLLECTED AND SENT TO LAB.
--- NOTE | 2022-03-22 18:59 | NUR ---
IV FLUIDS RUNNING.
[2022-03-22 19:13] LABS: BILIRUBIN,URINE NEGATIVE (NEGATIVE); COLOR,URINE YELLOW (YELLOW); LEUKOCYTE ESTERASE ,URINE TRACE (NEGATIVE); NITRITE, URINE POSITIVE (NEGATIVE); PROTEIN,URINE NEGATIVE (NEGATIVE); UGLUCOSE 2+ mg/dL (NEGATIVE)
[2022-03-22 19:28] LABS: CALCIUM, SERUM 8.8 mg/dL (8.5-10.1); CARBON DIOXIDE 31 mmol/L (21-32); CHLORIDE 100 mmol/L (98-107); CREATININE 0.6 mg/dL (0.6-1.3); GLUCOSE 253 mg/dL (74-106); POTASSIUM 4.9 mmol/L (3.5-5.1); SODIUM SERUM 134 mmol/L (136-145); UREA NITROGEN, BLOOD 22 mg/dL (7-18)
[2022-03-22 19:38] LABS: ALANINE AMINOTRANSFERASE 49 U/L (12-78); ALBUMIN 2.4 g/dL (3.4-5.0); ALKALINE PHOSPHATASE 77 U/L (46-116); ASPARTATE AMINOTRANSFERASE 23 U/L (15-37); BILIRUBIN,DIRECT 0.2 mg/dL (0.0-0.2); BILIRUBIN,TOTAL 0.5 mg/dL (0.2-1.0); TOTAL PROTEIN, SERUM 6.3 g/dL (6.4-8.2)
--- NOTE | 2022-03-22 19:45 | NUR ---
RECEIVED REPORT FROM PARIS DAILEY. PATIENT CAME WITH CC OF TACHYCARDIA FROM [facility]. PATIENT IS YORUBA SPEAKING. ABLE TO COMMUNICATE THRU SIMPLE WORDS. PATIENT WITH IV ALTAGRACIA ON RIGHT AC G20 RUNNING IS NS 1L, WITH NC AT 4LPM, ATTACHED TO MONITOR. VITALS CHECKED. PATIENT IS BEING TREATED FROM FACILITY D/T SCABIES.
[2022-03-22] MEDS ORDERED: LEVOFLOXACIN 750 MG /D5W 150ML 150 ML IV ONE ×2 (19:47→20:00)
[2022-03-22 19:58] LABS: RBC,URINE 0-2 /HPF (0-2)
[2022-03-22 19:59] LABS: BACTERIA,URINE None seen /HPF (None Seen); CALCIUM OXALATE CRYSTALS,UR Few /HPF (None Seen); URINE AMORPHOUS URATE Many /HPF (None Seen); YEAST,URINE Moderate /HPF (None Seen)
--- NOTE | 2022-03-22 20:02 | NUR ---
LACTIC ACID 3.2; DR CHRISTIAN MERCADO AWARE
[2022-03-22 20:12] LABS: BASOPHILS % (AUTO) 0.2 % (0.0-2.0); EOSINOPHILS % (AUTO) 0.1 % (0.0-6.0); HEMATOCRIT 44 % (33-45); HEMOGLOBIN 14.4 g/dL (11.5-14.8); LYMPHOCYTES # (AUTO) 1.2 K/uL (0.8-4.8); LYMPHOCYTES % (AUTO) 11.4 % (20.0-44.0); MEAN CORPUSCULAR HGB CONC 33 g/dl (31.0-36.0); MEAN CORPUSCULAR VOLUME 97 fL (82-100); MONOCYTES # (AUTO) 0.5 K/uL (0.1-1.30); MONOCYTES % (AUTO) 4.6 % (2.0-12.0); NEUTROPHILS # (AUTO) 8.6 K/uL (1.8-8.9); NEUTROPHILS % (AUTO) 83.7 % (43.0-81.0); PLATELET COUNT (AUTO) 246 K/uL (150-450); WHITE BLOOD COUNT (AUTO) 10.2 K/uL (4.3-11.0)
--- NOTE | 2022-03-22 20:28 | NUR ---
UPDATE GIVEN TO DAUGHTER GARRET.
--- NOTE | 2022-03-22 20:43 | NUR ---
EPIC PUPPET MASTER PAGED.
[2022-03-22] MEDS ORDERED: RIFAMPIN 300 MG CAPSULE PO SCH (21:30)
[2022-03-22] MEDS ORDERED: ONDANSETRON HCL/PF 4 MG/2 ML VIAL IVP PRN (21:30)
[2022-03-22] MEDS ORDERED: ALBUTEROL FS 2.5 MG/0.5 ML VIAL.NEB NEB PRN (21:30)
[2022-03-22] MEDS ORDERED: MORPHINE SULFATE INJ 2 MG/ML DISP.SYRIN IV PRN (21:30)
[2022-03-22] MEDS ORDERED: DEXTROSE 50%-WATER 50 ML DISP.SYRIN IV PRN (21:30)
[2022-03-22] MEDS ORDERED: ACETAMINOPHEN 325 MG TABLET PO PRN (21:30)
--- NOTE | 2022-03-22 21:47 | NUR ---
[facility]. [phone]
--- NOTE | 2022-03-22 22:07 | NUR ---
GOT BED 101
--- NOTE | 2022-03-22 22:15 | NUR ---
PARIS LEO WILL CALL BACK FOR REPORT
--- NOTE | 2022-03-22 22:25 | NUR ---
UPDATE GIVE NTO DAUGHTER EDA AND STAFF [facility]
--- NOTE | 2022-03-22 22:53 | NUR ---
REPORT GIVEN TO PARIS LEO
[2022-03-22] MEDS: BLOOD SUGAR DIAGNOSTIC 1 EACH STRIP VI SCH (23:00)
[2022-03-22] MEDS ORDERED: CEFEPIME 2 GM in IV D5W 100 ML IV ONE (23:00)
--- NOTE | 2022-03-22 23:06 | NUR ---
TRANSFERRED TO ROOM VIA ACLS PROTOCOL
--- NOTE | 2022-03-22 23:30 | NUR ---
CUTTER DOWN NOTE RECEIVED PT VIA ROSINA FROM ER. PT WAS AWAKE, A/O X 0-1. PT IS VERBAL, ABLE TO SPEAK AND RESPOND IN [place] USING A WORD OR TWO, BUT MOSTLY HONDURAN SPEAKING. CURRENTLY ON O2 VIA NC @ 4LPM, TOLERATING WELL. NO S/SX OF ACUTE RESPI DISTRESS NOTED AT THIS TIME. NO SOB, NO PAIN; BREATHING IS EVEN AND UNLABORED. TELE MONITOR SHOWS ST WITH HR >100 BPM. IV ACCESS NOTED ON R HAND, #20g and L HAND, #24g, BOTH INTACT AND PATENT, SL. FC IN PLACE, DRAINING YELLOW URINE VIA GRAVITY. WOUNDS NOTED ON THE FF AREAS: BILATERAL KNEES, SACRUM, AND UPPER ABDOMEN. PHOTOS TAKEN AND PLACED IN PT'S CHART. ALL SAFETY MEASURES IN PLACE: BED LOCKED IN LOW POSITION, BED ALARM ON. SR UP X 3, CALL LIGHT WITHIN REACH. WILL ENDORSE TO AM SHIFT NURSE FOR LC.
[2022-03-22] MEDS: QUETIAPINE FUMARATE 25 MG TABLET PO SCH (23:31)
[2022-03-22] MEDS: ATORVASTATIN 40 MG TABLET PO SCH (23:31)
[2022-03-22] MEDS: ENOXAPARIN SODIUM 40 MG/0.4 ML DISP.SYRIN SQ SCH (23:31)
[2022-03-22] MEDS ORDERED: CEFEPIME 1 GM VIAL ONE (23:58)
[2022-03-23] VITALS: BP 132/71
[2022-03-23] MEDS: *INSULIN REGULAR(HUMULIN R)HUM 100 UNIT/ML VIAL SQ PRN (00:37)
[2022-03-23 04:00] VITALS: BP 122/78
[2022-03-23] MEDS: IPRATROPIUM/ALBUTEROL INHALER IH SCH ×2 (05:25)
[2022-03-23] MEDS: QUETIAPINE FUMARATE 25 MG TABLET PO SCH ×2 (05:25→21:53)
--- NOTE | 2022-03-23 05:59 | NUR ---
RN NOTE PT REMAINED STABLE T/O THE NIGHT. PT IS AFEBRILE, VS ARE STABLE. PT IS ST ON TELE MONITOR. NO S/SX OF ACUTE DISTRESS NOTED. ALL DUE MEDS GIVEN. NEEDS ATTENDED TO. TURNED AND REPOSITIONED. WILL ENDORSE TO AM SHIFT NURSE FOR LC.
[2022-03-23 06:32] LABS: BASOPHILS % (AUTO) 0.2 % (0.0-2.0); EOSINOPHILS % (AUTO) 0.3 % (0.0-6.0); HEMATOCRIT 39 % (33-45); HEMOGLOBIN 12.7 g/dL (11.5-14.8); LYMPHOCYTES % (AUTO) 12.6 % (20.0-44.0); MEAN CORPUSCULAR HGB CONC 33 g/dl (31.0-36.0); MEAN CORPUSCULAR VOLUME 96 fL (82-100); MONOCYTES # (AUTO) 0.5 K/uL (0.1-1.30); MONOCYTES % (AUTO) 6.3 % (2.0-12.0); NEUTROPHILS # (AUTO) 6.5 K/uL (1.8-8.9); NEUTROPHILS % (AUTO) 80.6 % (43.0-81.0); PLATELET COUNT (AUTO) 200 K/uL (150-450); RED BLOOD CELL COUNT(AUTO) 4.02 MIL/uL (4.0-5.2); WHITE BLOOD COUNT (AUTO) 8.1 K/uL (4.3-11.0)
[2022-03-23 06:51] LABS: ALANINE AMINOTRANSFERASE 40 U/L (12-78); ALBUMIN 2.1 g/dL (3.4-5.0); ALKALINE PHOSPHATASE 60 U/L (46-116); ASPARTATE AMINOTRANSFERASE 21 U/L (15-37); BILIRUBIN,TOTAL 0.6 mg/dL (0.2-1.0); CALCIUM, SERUM 8.2 mg/dL (8.5-10.1); CARBON DIOXIDE 30 mmol/L (21-32); CHLORIDE 105 mmol/L (98-107); CREATININE 0.4 mg/dL (0.6-1.3); GLUCOSE 73 mg/dL (74-106); PHOSPHORUS 1.9 mg/dL (2.5-4.9); POTASSIUM 3.8 mmol/L (3.5-5.1); SODIUM SERUM 138 mmol/L (136-145); TOTAL PROTEIN, SERUM 5.5 g/dL (6.4-8.2); UREA NITROGEN, BLOOD 17 mg/dL (7-18)
[2022-03-23] MEDS ORDERED: ETHAMBUTOL HCL (400 MG) 400 MG TABLET PO SCH (07:00)
--- NOTE | 2022-03-23 07:20 | NUR ---
rn opening note RECEIVED PT IN BED.PT AWAKE, ALERT AND ORIENTED X0-1. PT IS VERBAL. ABLE TO RESPOND.PT IS SNUS TACHYCARDIA 106 ON TELE MONITOR. PT IS CURRENTLY ON 02 VIA 4 L NASAL CANNULA TOLERATING AT 100%. IV ACCESS ON LEFT HAND 24 G AND RIGHT HAND 20 GUAGE. INTACT, PATENT AND FLUSHING WELL. NO SIGNS OF SYMPTOMS OF PAIN OR DISCOMNFORT NOTED AT THIS TIME. ALL SAFETY MEASURES IN PLACE. CALL LIGHT WITHIN REACH. BED LOCKED AT LOWEST POSITION. SIDE RAILS UP 2. BED ALARM ON
[2022-03-23] MEDS: BLOOD SUGAR DIAGNOSTIC 1 EACH STRIP VI SCH ×4 (07:37→21:53)
[2022-03-23 08:00] VITALS: BP 134/79
[2022-03-23] MEDS: MULTIVIT W/MINERALS 1 TAB TABLET PO SCH (09:00)
[2022-03-23] MEDS ORDERED: CRANBERRY PO SCH (09:00)
[2022-03-23] MEDS: ASPIRIN 81 MG TAB.CHEW PO SCH (09:00)
[2022-03-23] MEDS: CALCIUM CARBONATE (1250) 500 MG TABLET PO SCH (09:00)
[2022-03-23 10:37] LABS: BAND % (MANUAL) 2 % (0.0-5.0); BASOPHILS % (MANUAL) 0 % (0.0-2.0); EOSINOPHILS % (MANUAL) 1 % (0-4); LYMPHOCYTES % (MANUAL) 13 % (16-48); MONOCYTES % (MANUAL) 3 % (0-11.0); NEUTROPHILS % (MANUAL) 81 (42-76)
[2022-03-23] MEDS: CEFEPIME 2 GM in IV D5W 100 ML IV SCH ×2 (11:04→21:53)
--- NOTE | 2022-03-23 11:39 | NUR ---
RN NOTE NOTIFIED DR. SCHWARZ THAT RN SPOKE WITH PATIENT DAUGHTER AND WANTS ASPIRIN,CALCUIM CARBONATE, COLACE AND LIPITOR HELD. NOTIFIED DR. HYLTON IF PATIENT TB MEDICATIONS RESTASIS,ETHAMBUTOL, RIFAMPIN TO BE DISCONTINUED BECAUSE PT HAS BEEN OFF MEDICATIONS FOR OVER A YEAR
[2022-03-23] MEDS: MEMANTINE HCL 5 MG TABLET PO SCH ×2 (11:47→18:02)
[2022-03-23] MEDS: LEVETIRACETAM (250 MG) 250 MG TABLET PO SCH ×2 (11:47→18:02)
[2022-03-23 12:00] VITALS: BP 124/76
[2022-03-23] MEDS: PROPRANOLOL HCL 40 MG TABLET PO SCH ×2 (12:17→18:01)
[2022-03-23] MEDS: ESCITALOPRAM OXALATE (10 MG) 10 MG TABLET PO SCH (12:18)
[2022-03-23] MEDS: INSULIN GLARGINE, 100 UNIT/ML CARTRIDGE SQ SCH (12:30)
[2022-03-23] MEDS: VALSARTAN 40 MG TABLET PO SCH (13:41)
[2022-03-23] MEDS: AMLODIPINE BESYLATE 5 MG TABLET PO SCH (13:42)
[2022-03-23] MEDS ORDERED: NEUTRA PHOS 1 POWD.PACKET PO ONE (14:00)
[2022-03-23 16:00] VITALS: BP 131/69
[2022-03-23] MEDS: DOCUSATE SODIUM 100 MG CAPSULE PO SCH (17:09)
[2022-03-23] MEDS: ASCORBIC ACID 500 MG TABLET PO SCH (18:02)
[2022-03-23] MEDS: INSULIN REGULAR, HUMAN 100 UNIT/ML 3 ML VIAL SQ PRN ×2 (18:56→21:51)
--- NOTE | 2022-03-23 19:33 | NUR ---
RN OPENING NOTE PATIENT AWAKE IN BED. A/OX1 (NAME). NO S/S OF DISTRESS, BREATHING WITHOUT DIFFICULTY ON 4L NC. R-HAND #20 SL INTACT AND PATENT; L-HAND #20 SL INTACT AND PATENT. TELE READS SR 87. SAFETY MEASURES IN PLACE: BED LOCKED IN PLACE WITH BED AT LOWEST POSITION, RAILS UP X2, CALL BOYCE WITHIN REACH. WILL CONTINUE TO MONITOR PATIENT.
--- NOTE | 2022-03-23 20:15 | NUR ---
rn closing note PT IN BED.PT AWAKE, ALERT AND ORIENTED X0-1. PT IS VERBAL. ABLE TO RESPOND.PT IS SINUS RHYTHM 87 ON TELE MONITOR. PT IS CURRENTLY ON 02 VIA 4 L NASAL CANNULA TOLERATING AT 100%. IV ACCESS ON LEFT HAND 24 G AND RIGHT HAND 20 GAUGE. INTACT, PATENT AND FLUSHING WELL. NO SIGNS OF SYMPTOMS OF PAIN OR DISCOMFORT NOTED AT THIS TIME. ALL SAFETY MEASURES IN PLACE. CALL LIGHT WITHIN REACH. BED LOCKED AT LOWEST POSITION. SIDE RAILS UP 2. BED ALARM ON.ENDORSED TO CARDIOLOGY PHYSICIAN ASSISTANT RN FOR CONTUITY OF CARE
[2022-03-23] MEDS: LEVOFLOXACIN 750 MG /D5W 150ML 750 MG in PREMIX 1 EA IV SCH (20:21)
[2022-03-23] MEDS: IPRATROPIUM NEB FS 0.5 MG/2.5 ML AMPUL.NEB IH SCH ×2 (20:34→20:46)
[2022-03-23] MEDS: ALBUTEROL FS 2.5 MG/0.5 ML VIAL.NEB NEB SCH ×2 (20:34→20:46)
[2022-03-23 20:37] VITALS: BP 134/74
[2022-03-23] MEDS: ATORVASTATIN 40 MG TABLET PO SCH (21:37)
[2022-03-23] MEDS: ENOXAPARIN SODIUM 40 MG/0.4 ML DISP.SYRIN SQ SCH (21:52)
[2022-03-23] MEDS ORDERED: MELATONIN 3 MG TABLET PO SCH (22:00)
[2022-03-24 00:28] VITALS: BP 107/59
--- NOTE | 2022-03-24 00:54 | NUR ---
RN NOTE PATIENT'S DAUGHTER, EDA, CONTACTED UNIT. ALL QUESTIONS ANSWERED; ALL CONCERNS ADDRESSED. EDA'S CONTACT INFORMATION VERIFIED: [phone]. PATIENT STABLE; WILL CONTINUE TO MONITOR PATIENT.
[2022-03-24] MEDS: IPRATROPIUM NEB FS 0.5 MG/2.5 ML AMPUL.NEB IH SCH ×4 (02:10→20:48)
[2022-03-24] MEDS: ALBUTEROL FS 2.5 MG/0.5 ML VIAL.NEB NEB SCH ×4 (02:10→20:48)
[2022-03-24 04:35] VITALS: BP 98/58
[2022-03-24] MEDS: QUETIAPINE FUMARATE 25 MG TABLET PO SCH ×2 (05:28→22:45)
--- NOTE | 2022-03-24 06:00 | NUR ---
RN CLOSING NOTE PATIENT ASLEEP IN BED. A/OX1 (NAME). NO S/S OF DISTRESS, BREATHING WITHOUT DIFFICULTY ON 4L NC. R-HAND #20 SL INTACT AND PATENT; L-HAND #20 SL INTACT AND PATENT. TELE READS SR 89. SAFETY MEASURES IN PLACE: BED LOCKED IN PLACE WITH BED AT LOWEST POSITION, RAILS UP X2, CALL BOYCE WITHIN REACH. WILL ENDORSE TO NEXT SHIFT FOR LC. Addendum: 03/24/22 at 0847 by CLEMENCIA FELDER RN INFORMED PATIENT BLOOD SUGAR IS 71. LANTUS HELD. PATIENT IS AWAKE AND ALERT. SLOWLY EATING BREAKFAST SPOON FED. SKIN IS WARM AND DRY.
--- NOTE | 2022-03-24 07:15 | NUR ---
DEVELOPER DESIGNER OPEN NOTE: ALERT AND ORIENTED TO NAME. RESPONSIVE TO VERBAL STIMULI. MOIST ORAL MUCOSA. UNLABORED BREATHING WITH 02 4LPM NC. LAW OFFICE RECEPTIONIST WITH SINUS RHYTHM OF 90'S. IV ON RIGHT HAND G20 AND LEFT HAND G 24 PATENT WITH NO S/S OF COMPLICATIONS. HOB ELEVATED IN SEMI FOWLERS POSITION. BILATERAL HALF SIDE RAILS UP X2. BED IN LOW POSITION, LOCKED, EXIT ALARM ON. CALL LIGHT IN REACH. NO ACUTE DISTRESS NOTED.
[2022-03-24] MEDS: BLOOD SUGAR DIAGNOSTIC 1 EACH STRIP VI SCH ×4 (07:58→23:33)
[2022-03-24 08:00] VITALS: BP 109/67
[2022-03-24] MEDS: CEFEPIME 2 GM in IV D5W 100 ML IV SCH ×2 (08:21→22:50)
[2022-03-24] MEDS: INSULIN GLARGINE, 100 UNIT/ML CARTRIDGE SQ SCH (09:00)
[2022-03-24] MEDS: FLUCONAZOLE (100 MG) 100 MG TABLET PO SCH (09:01)
[2022-03-24] MEDS: ASPIRIN 81 MG TAB.CHEW PO SCH (09:01)
[2022-03-24] MEDS: VALSARTAN 40 MG TABLET PO SCH (09:02)
[2022-03-24] MEDS: PROPRANOLOL HCL 40 MG TABLET PO SCH ×2 (09:02→18:13)
[2022-03-24] MEDS: MEMANTINE HCL 5 MG TABLET PO SCH ×2 (09:03→18:13)
[2022-03-24] MEDS: ESCITALOPRAM OXALATE (10 MG) 10 MG TABLET PO SCH (09:03)
[2022-03-24] MEDS: CALCIUM CARBONATE (1250) 500 MG TABLET PO SCH (09:03)
[2022-03-24] MEDS: LEVETIRACETAM (250 MG) 250 MG TABLET PO SCH ×2 (09:03→18:12)
[2022-03-24] MEDS: MULTIVIT W/MINERALS 1 TAB TABLET PO SCH (09:03)
[2022-03-24] MEDS: AMLODIPINE BESYLATE 5 MG TABLET PO SCH (09:04)
--- NOTE | 2022-03-24 10:00 | NUR ---
Dr. Mohan informed BG was 71 at 9am held [facility].
[2022-03-24 12:00] VITALS: BP 125/69
[2022-03-24 16:00] VITALS: BP 137/68
[2022-03-24] MEDS: ASCORBIC ACID 500 MG TABLET PO SCH (18:12)
[2022-03-24] MEDS: DOCUSATE SODIUM 100 MG CAPSULE PO SCH (18:12)
--- NOTE | 2022-03-24 18:30 | NUR ---
CALL OR CONTACT CENTRE OPERATOR CLOSING NOTE: ALERT AND ORIENTED TO NAME. RESPONSIVE TO VERBAL STIMULI. MOIST ORAL MUCOSA. UNLABORED BREATHING WITH 02 4LPM NC. REGISTERED ACCOUNT ADMINISTRATOR WITH SINUS RHYTHM OF 90'S. IV ON RIGHT HAND G20 AND LEFT HAND G 24 PATENT WITH NO S/S OF COMPLICATIONS. HOB ELEVATED IN SEMI FOWLERS POSITION. BILATERAL HALF SIDE RAILS UP X2. BED IN LOW POSITION, LOCKED, EXIT ALARM ON. CALL LIGHT IN REACH. NO ACUTE DISTRESS NOTED. CONINUES WITH POOR PO INTAKE. NO S/S OF HYPO OR HYPERGLYCEMIA AT THIS TIME. TURNED AND REPOSITIONED. TORRES CATHETER WITH ORANGE URINE. IN PLACE.
[2022-03-24] MEDS: CLOTRIMAZOLE 1% 15 GM TUBE TP SCH (18:59)
[2022-03-24 20:00] VITALS: BP 113/67
--- NOTE | 2022-03-24 20:00 | NUR ---
QA ANALYST OPENING NOTE RECEIVED PT IN BED, AWAKE, ORIENTED TO NAME. RESPONSIVE TO VERBAL STIMULI. ON O2 4LPM VIA NC, WELL TOLERATED, BREATHING EVEN AND UNLABORED, O2 SAT 98%. UNISAW OPERATOR ATTACHED. IV ACCESS ON RIGHT HAND G20 AND LEFT HAND G24 CLEAN AND DRY, NO S/S OF INFX/INFILTRATION. FC IN PLACED, PATENT, DRAINING CASSANDRA YELLOW URINE. SAFETY PRECAUTIONS IMPLEMENTED: BSR UP X2, BED IN LOW POSITION AND LOCKED. WILL CONT POC
[2022-03-24] MEDS: LEVOFLOXACIN 750 MG /D5W 150ML 750 MG in PREMIX 1 EA IV SCH (22:15)
[2022-03-24] MEDS: ATORVASTATIN 40 MG TABLET PO SCH (22:45)
[2022-03-24] MEDS: ENOXAPARIN SODIUM 40 MG/0.4 ML DISP.SYRIN SQ SCH (22:48)
--- NOTE | 2022-03-24 23:22 | NUR ---
MULTILITH OPERATOR NOTES HS BS: 128MG/DL, NO REGULAR INSULIN COVERAGE NEEDED PER SLIDING SCALE ORDERED.
[2022-03-24] MEDS: *INSULIN REGULAR(HUMULIN R)HUM 100 UNIT/ML VIAL SQ PRN (23:35)
[2022-03-25] VITALS: BP 108/60
[2022-03-25] MEDS: IPRATROPIUM NEB FS 0.5 MG/2.5 ML AMPUL.NEB IH SCH ×4 (02:11→20:13)
[2022-03-25] MEDS: ALBUTEROL FS 2.5 MG/0.5 ML VIAL.NEB NEB SCH ×4 (02:11→20:13)
[2022-03-25 04:00] VITALS: BP 105/58
[2022-03-25] MEDS: QUETIAPINE FUMARATE 25 MG TABLET PO SCH ×2 (05:58→21:11)
--- NOTE | 2022-03-25 06:44 | NUR ---
GAS DISTRIBUTION SUPERVISOR CLOSING NOTE PT IN BED, AWAKE, ORIENTED TO NAME. RESPONSIVE TO VERBAL STIMULI, ABLE TO MAKE NEEDS KNOWN. ON O2 4LPM VIA NC, WELL TOLERATED, BREATHING EVEN AND UNLABORED, O2 SAT 99%. WIRE STRAIGHTENING MACHINE OPERATOR ATTACHED TELE READING SR 74. IV ACCESS ON RIGHT HAND G20 AND LEFT HAND G24 CLEAN AND DRY, NO S/S OF INFX/INFILTRATION. ALL DUE MEDICATIONS GIVEN ORDERED. ALL NEEDS ANTICIPATED. FC IN PLACED, PATENT, DRAINING DARK YELLOW URINE. SAFETY PRECAUTIONS IMPLEMENTED: BSR UP X2, BED IN LOW POSITION AND LOCKED. WILL ENDORSE TO AM NURSE
--- NOTE | 2022-03-25 07:10 | NUR ---
SPRAY TECHNICIAN OPENING NOTE PATIENT IN BED, ASLEEP, ON O2 2L VIA NC, WELL TOLERATED, BREATHING EVEN AND UNLABORED, O2 SAT 99%. EXTERNAL SCADA OPERATOR SHOWS SR 82. IV ACCESS ON RIGHT HAND G20 AND LEFT HAND G24 INTACT AND DRY, NO S/S OF INFX/INFILTRATION. TORRES CATHETER DRAINING URINE BY GRAVITY. PT IS ON CONTACT ISOLATION D/T SCABIES. SAFETY PRECAUTIONS IMPLEMENTED: BSR UP X2, BED LOCKED AND IN LOW POSITION
[2022-03-25] MEDS: BLOOD SUGAR DIAGNOSTIC 1 EACH STRIP VI SCH ×4 (07:35→21:37)
[2022-03-25 08:00] VITALS: BP 93/48
[2022-03-25] MEDS: CEFEPIME 2 GM in IV D5W 100 ML IV SCH ×2 (08:11→21:10)
[2022-03-25] MEDS: ASPIRIN 81 MG TAB.CHEW PO SCH (08:11)
[2022-03-25] MEDS: FLUCONAZOLE (100 MG) 100 MG TABLET PO SCH (08:13)
[2022-03-25] MEDS: PROPRANOLOL HCL 40 MG TABLET PO SCH ×3 (08:14→16:36)
[2022-03-25] MEDS: MEMANTINE HCL 5 MG TABLET PO SCH ×2 (08:15→16:28)
[2022-03-25] MEDS: MULTIVIT W/MINERALS 1 TAB TABLET PO SCH (08:15)
[2022-03-25] MEDS: ESCITALOPRAM OXALATE (10 MG) 10 MG TABLET PO SCH (08:15)
[2022-03-25] MEDS: LEVETIRACETAM (250 MG) 250 MG TABLET PO SCH ×2 (08:16→16:28)
[2022-03-25] MEDS: AMLODIPINE BESYLATE 5 MG TABLET PO SCH (08:19)
[2022-03-25] MEDS: VALSARTAN 40 MG TABLET PO SCH (08:22)
[2022-03-25] MEDS: INSULIN GLARGINE, 100 UNIT/ML CARTRIDGE SQ SCH (08:26)
[2022-03-25] MEDS: CALCIUM CARBONATE (1250) 500 MG TABLET PO SCH (08:31)
[2022-03-25] MEDS: CLOTRIMAZOLE 1% 15 GM TUBE TP SCH ×2 (09:16→16:29)
[2022-03-25 12:00] VITALS: BP 93/54
[2022-03-25] MEDS: *INSULIN REGULAR(HUMULIN R)HUM 100 UNIT/ML VIAL SQ PRN ×2 (12:40→21:39)
[2022-03-25 16:00] VITALS: BP 98/53
[2022-03-25] MEDS: INSULIN REGULAR, HUMAN 100 UNIT/ML 3 ML VIAL SQ PRN (17:00)
[2022-03-25] MEDS: DOCUSATE SODIUM 100 MG CAPSULE PO SCH (17:41)
[2022-03-25] MEDS: ASCORBIC ACID 500 MG TABLET PO SCH (17:41)
--- NOTE | 2022-03-25 18:54 | NUR ---
RN CLOSING NOTE PATIENT ASLEEP IN BED. A/OX1 (NAME). NO S/S OF DISTRESS, BREATHING WITHOUT DIFFICULTY ON 3L NC. R-HAND #20 SL INTACT AND PATENT; L-HAND #20 SL INTACT AND PATENT. TELE READS SR 76. SAFETY MEASURES IN PLACE: BED LOCKED IN PLACE WITH BED AT LOWEST POSITION, RAILS UP X2, CALL BOYCE WITHIN REACH. WILL ENDORSE TO NEXT SHIFT FOR LC.
--- NOTE | 2022-03-25 19:45 | NUR ---
FITNESS SALES CONSULTANT OPENING NOTES: RECEIVED PT IN BED, AWAKE, ALERT/ORIENTED X1 AND RESPONSIVE TO VERBAL STIMULI. ON O2 2L/MIN VIA N/C AND PT TOLERATED WELL. M VIA NC, WELL TOLERATED, BREATHING EVEN AND UNLABORED. IV ACCESS ON RIGHT HAND 20G AND LEFT HAND 24G INTACT AND PATENT. NO S/S OF INFILTRATIONS.NO FACIAL GRIMACING NOTED. F/C IN PLACE, DRAINING BY GRAVITY. NOTED CASSANDRA COLOR URINE. ALL SAFETY MEASURES IN PLACE. BED IN LOWEST POSITION AND LOCKED. SIDE RAILS X3, PLACE CALL LIGHT WITH IN REACH. WILL CONTINUE TO MONITOR
[2022-03-25 20:00] VITALS: BP 105/60
[2022-03-25] MEDS: LEVOFLOXACIN 750 MG /D5W 150ML 750 MG in PREMIX 1 EA IV SCH (20:54)
[2022-03-25] MEDS: ATORVASTATIN 40 MG TABLET PO SCH (21:11)
[2022-03-25] MEDS: ENOXAPARIN SODIUM 40 MG/0.4 ML DISP.SYRIN SQ SCH (21:18)
--- NOTE | 2022-03-25 21:45 | NUR ---
RN NOTES: PT'S BLOOD SUGAR 157. 2 UNITS OF REGULAR INSULIN GIVEN. NO S/S OF HYPER/HYPOGLYCEMIA. WILL CONTINUE TO MONITOR
[2022-03-26] VITALS: BP 91/52
[2022-03-26] MEDS: IPRATROPIUM NEB FS 0.5 MG/2.5 ML AMPUL.NEB IH SCH ×4 (01:50→20:16)
[2022-03-26] MEDS: ALBUTEROL FS 2.5 MG/0.5 ML VIAL.NEB NEB SCH ×4 (01:50→20:16)
[2022-03-26 06:00] VITALS: BP 115/52
[2022-03-26] MEDS: QUETIAPINE FUMARATE 25 MG TABLET PO SCH ×2 (06:01→22:15)
--- NOTE | 2022-03-26 06:35 | NUR ---
RN CLOSING NOTES: PT ASLEEP IN BED. NO SIGNIFICANT CHANGES THROUGH ALL NIGHT. ALL DUE MEDS GIVEN ORDERED. ENDORSE TO MORNING SHIFT NURSE.
[2022-03-26 08:00] VITALS: BP 118/57
[2022-03-26] MEDS ORDERED: Z GUARD REMEDY 4 OZ OINT TP PRN (08:00)
--- NOTE | 2022-03-26 08:00 | NUR ---
WOUND CARE CONSULT: PT PRESENTS WITH VERY FRAGILE SKIN WITH GENERALIZED SKIN DISCOLORATION, RT KNEE DRY WOUND, LEFT KNEE HEALED SCAR, SACRAL INTACT DEEP TISSUE INJURY WITH DRY LESIONS TO RT BUTTOCK AND ABDOMINAL SUTURE NOTED, ALL PRESENT ON ADMISSION. DR JUARES CALLED FOR SURGICAL CONSULT. DISCUSSED SKIN PROTECTION WITH NURSING STAFF. PER NURSING STAFF, PT WAS PREVIOUSLY TREATED FOR SCABIES AT THE SENDING FACILITY. IN AGREEMENT WITH PLAN OF CARE. Addendum: 03/26/22 at 0802 by TOMAS CARTER WNDNU Amended: Links added.
[2022-03-26] MEDS: BLOOD SUGAR DIAGNOSTIC 1 EACH STRIP VI SCH ×4 (08:15→22:24)
[2022-03-26] MEDS: LEVETIRACETAM (250 MG) 250 MG TABLET PO SCH ×2 (08:34→16:24)
[2022-03-26] MEDS: MULTIVIT W/MINERALS 1 TAB TABLET PO SCH (08:34)
[2022-03-26] MEDS: CALCIUM CARBONATE (1250) 500 MG TABLET PO SCH (08:34)
[2022-03-26] MEDS: MEMANTINE HCL 5 MG TABLET PO SCH ×2 (08:35→16:24)
[2022-03-26] MEDS: FLUCONAZOLE (100 MG) 100 MG TABLET PO SCH (08:35)
[2022-03-26] MEDS: VALSARTAN 40 MG TABLET PO SCH (08:35)
[2022-03-26] MEDS: ASPIRIN 81 MG TAB.CHEW PO SCH (08:35)
[2022-03-26] MEDS: ESCITALOPRAM OXALATE (10 MG) 10 MG TABLET PO SCH (08:35)
[2022-03-26] MEDS: CEFEPIME 2 GM in IV D5W 100 ML IV SCH ×2 (08:36→20:12)
[2022-03-26] MEDS: PROPRANOLOL HCL 40 MG TABLET PO SCH ×2 (08:36→16:25)
[2022-03-26] MEDS: CLOTRIMAZOLE 1% 15 GM TUBE TP SCH ×2 (08:37→16:26)
[2022-03-26] MEDS: Z GUARD REMEDY 4 OZ OINT TP SCH (08:37)
[2022-03-26] MEDS: INSULIN GLARGINE, 100 UNIT/ML CARTRIDGE SQ SCH (08:40)
[2022-03-26] MEDS: AMLODIPINE BESYLATE 5 MG TABLET PO SCH (08:41)
--- NOTE | 2022-03-26 09:40 | NUR ---
RN CHANGE SHIFT REPORT I MOVED TO ICU AND THIS THE REPORT FOR THIS PATIENT GIVEN TO [place] FOR CONTINUE OF CARE. ALL AM MEDS GIVEN. CRUSHED MEDS WITH APPLE SAUCE.
[2022-03-26] MEDS: INSULIN REGULAR, HUMAN 100 UNIT/ML 3 ML VIAL SQ PRN (11:20)
[2022-03-26 12:00] VITALS: BP 133/77
--- NOTE | 2022-03-26 15:15 | NUR ---
COVID TEST ANTIGEN TAKEN PER ORDER AND SENT IT TO LAB
[2022-03-26 16:00] VITALS: BP 112/60
[2022-03-26] MEDS: DOCUSATE SODIUM 100 MG CAPSULE PO SCH (17:04)
[2022-03-26] MEDS: ASCORBIC ACID 500 MG TABLET PO SCH (17:04)
[2022-03-26 20:00] VITALS: BP 138/71
[2022-03-26] MEDS ORDERED: LEVOFLOXACIN (250MG) 250 MG TABLET PO SCH (20:00)
--- NOTE | 2022-03-26 20:00 | NUR ---
OUTREACH AND EDUCATION SOCIAL WORKER OPENING NOTE RECEIVED PT IN BED, A/O X1 (NAME). ON 2L NC WITH O2 SAT OF 98%; NO S/SX OF DISTRESS, NO SOB. RIGHT HAND #20 SL INTACT AND PATENT; LEFT HAND #24 INTACT AND PATENT. TELE SR HR 76. TORRES CATH IN PLACE WITH CLEAR YELLOW URINE. BED LOCKED AND AT LOWEST POSITION, SIDE RAILS UP X2, CALL LIGHT WITHIN REACH. WILL CONTINUE TO MONITOR.
[2022-03-26] MEDS: ENOXAPARIN SODIUM 40 MG/0.4 ML DISP.SYRIN SQ SCH (20:52)
[2022-03-26] MEDS: ATORVASTATIN 40 MG TABLET PO SCH (22:14)
[2022-03-26] MEDS: *INSULIN REGULAR(HUMULIN R)HUM 100 UNIT/ML VIAL SQ PRN (22:35)
[2022-03-27] VITALS: BP 106/55
[2022-03-27] MEDS: IPRATROPIUM NEB FS 0.5 MG/2.5 ML AMPUL.NEB IH SCH ×3 (01:56→13:14)
[2022-03-27] MEDS: ALBUTEROL FS 2.5 MG/0.5 ML VIAL.NEB NEB SCH ×3 (01:56→13:14)
[2022-03-27 04:00] VITALS: BP 110/51
[2022-03-27] MEDS: QUETIAPINE FUMARATE 25 MG TABLET PO SCH (05:19)
--- NOTE | 2022-03-27 06:30 | NUR ---
TEST BAKER CLOSING NOTE PT ASLEEP, BUT EASY TO AROUSE. ON 2L NC WITH O2 SAT OF 98%; NO S/SX OF DISTRESS, NO SOB. RIGHT HAND #20 SL INTACT AND PATENT; LEFT HAND #24 INTACT AND PATENT. TELE [address] HR 102. TORRES CATH IN PLACE WITH CASSANDRA YELLOW URINE; TOTAL URINE OUTPUT 300ML; ALL DUE MEDS WERE GIVEN AND NEEDS ATTENDED; SAFETY PRECAUTIONS MAINTAINED: BED LOCKED AND AT LOWEST POSITION, SIDE RAILS UP X3, CALL LIGHT WITHIN REACH; WILL ENDORSE TO ONCOMING NURSE FOR LC.
--- NOTE | 2022-03-27 07:20 | NUR ---
MICROSTRATEGY ARCHITECT DEVELOPER OPENING NOTES Received pt asleep in bed. Currently on 2L NC and tolerating it well. No signs of pain or discomfort at this time. IV access on right hand 20G and left hand 24G patent and intact. HOB elevated to pts comfort. Siderails up x2 at all times. Bed at its lowest setting and locked. Call light within reach. Will anticipate needs.
[2022-03-27 07:44] LABS: BASOPHILS % (AUTO) 0.3 % (0.0-2.0); EOSINOPHILS % (AUTO) 6.9 % (0.0-6.0); HEMATOCRIT 34 % (33-45); HEMOGLOBIN 11.1 g/dL (11.5-14.8); LYMPHOCYTES # (AUTO) 0.7 K/uL (0.8-4.8); MEAN CORPUSCULAR HGB CONC 33 g/dl (31.0-36.0); MEAN CORPUSCULAR VOLUME 94 fL (82-100); MONOCYTES # (AUTO) 0.5 K/uL (0.1-1.30); MONOCYTES % (AUTO) 8.4 % (2.0-12.0); NEUTROPHILS # (AUTO) 4.2 K/uL (1.8-8.9); NEUTROPHILS % (AUTO) 72.4 % (43.0-81.0); PLATELET COUNT (AUTO) 202 K/uL (150-450); RED BLOOD CELL COUNT(AUTO) 3.56 MIL/uL (4.0-5.2); WHITE BLOOD COUNT (AUTO) 5.9 K/uL (4.3-11.0)
[2022-03-27] MEDS: BLOOD SUGAR DIAGNOSTIC 1 EACH STRIP VI SCH ×2 (07:50→11:25)
[2022-03-27 07:56] LABS: CALCIUM, SERUM 8.2 mg/dL (8.5-10.1); CARBON DIOXIDE 31 mmol/L (21-32); CHLORIDE 100 mmol/L (98-107); CREATININE 0.4 mg/dL (0.6-1.3); GLUCOSE 112 mg/dL (74-106); MAGNESIUM 2.2 mg/dL (1.8-2.4); PHOSPHORUS 1.7 mg/dL (2.5-4.9); POTASSIUM 3.5 mmol/L (3.5-5.1); SODIUM SERUM 135 mmol/L (136-145); UREA NITROGEN, BLOOD 17 mg/dL (7-18)
[2022-03-27 08:00] VITALS: BP 123/63
[2022-03-27] MEDS: FLUCONAZOLE (100 MG) 100 MG TABLET PO SCH (08:46)
[2022-03-27] MEDS: MULTIVIT W/MINERALS 1 TAB TABLET PO SCH (08:47)
[2022-03-27] MEDS: LEVETIRACETAM (250 MG) 250 MG TABLET PO SCH (08:47)
[2022-03-27] MEDS: MEMANTINE HCL 5 MG TABLET PO SCH (08:47)
[2022-03-27] MEDS: ASPIRIN 81 MG TAB.CHEW PO SCH (08:47)
[2022-03-27] MEDS: ESCITALOPRAM OXALATE (10 MG) 10 MG TABLET PO SCH (08:48)
[2022-03-27] MEDS: CALCIUM CARBONATE (1250) 500 MG TABLET PO SCH (08:48)
[2022-03-27] MEDS: PROPRANOLOL HCL 40 MG TABLET PO SCH (08:48)
[2022-03-27] MEDS: VALSARTAN 40 MG TABLET PO SCH (08:53)
[2022-03-27] MEDS: CEFEPIME 2 GM in IV D5W 100 ML IV SCH (09:01)
[2022-03-27] MEDS: CLOTRIMAZOLE 1% 15 GM TUBE TP SCH (09:08)
[2022-03-27] MEDS: Z GUARD REMEDY 4 OZ OINT TP SCH (09:08)
[2022-03-27] MEDS: INSULIN GLARGINE, 100 UNIT/ML CARTRIDGE SQ SCH (09:12)
[2022-03-27] MEDS: AMLODIPINE BESYLATE 5 MG TABLET PO SCH (09:46)
[2022-03-27] MEDS: INSULIN REGULAR, HUMAN 100 UNIT/ML 3 ML VIAL SQ PRN (11:28)
[2022-03-27 12:00] VITALS: BP 121/71
--- NOTE | 2022-03-27 13:50 | NUR ---
NATUROPATHIC PHYSICIAN NOTES MD [facility] Report given to PARIS Galvez and informed her that pickers material handlers time is at 1530.
--- NOTE | 2022-03-27 14:00 | NUR ---
POSSUM TRAPPER NOTES Informed pts daughter Sonja that her mom will get discharged back to [facility]. Verbalized understanding.
--- NOTE | 2022-03-27 15:51 | NUR ---
HEARING OFFICER NOTES Pt picked up by ZHEN gurrola and gave all paperwork to EMT. Transferred from bed to [facility] safely. External monitoring coordinator removed.
[2022-03-27] MEDS ORDERED: NEUTRA PHOS 1 POWD.PACKET NG ONE (16:00)
== END 2022-03-27 16:48 | DRG 871 ==
LOC: ER 17:55 → TELE1 22:10
PROVIDERS: ADMIT Internal Medicine; ATTEND Nurse Practitioner Family
DX: A41.9 Sepsis, unspecified organism (principal); J15.6 Pneumonia due to other Gram-negative bacteria; N39.0 Urinary tract infection, site not specified; C34.90 Malignant neoplasm of unspecified part of unspecified bronchus or lung; C79.31 Secondary malignant neoplasm of brain; E44.0 Moderate protein-calorie malnutrition; R65.20 Severe sepsis without septic shock; Z20.822 Contact with and (suspected) exposure to COVID-19; G30.9 Alzheimer's disease, unspecified; F02.80 Dementia in other diseases classified elsewhere, unspecified severity, without behavioral disturbance, psychotic disturbance, mood disturbance, and anxiety; G40.909 Epilepsy, unspecified, not intractable, without status epilepticus; Z88.1 Allergy status to other antibiotic agents; Z88.8 Allergy status to other drugs, medicaments and biological substances; Z79.4 Long term (current) use of insulin; Z79.899 Other long term (current) drug therapy; Z79.82 Long term (current) use of aspirin; I10 Essential (primary) hypertension; E11.65 Type 2 diabetes mellitus with hyperglycemia; B86 Scabies; E88.09 Other disorders of plasma-protein metabolism, not elsewhere classified; Z86.11 Personal history of tuberculosis; L89.156 Pressure-induced deep tissue damage of sacral region; L89.016 Pressure-induced deep tissue damage of right elbow; L89.890 Pressure ulcer of other site, unstageable; R62.7 Adult failure to thrive; L65.8 Other specified nonscarring hair loss; T45.1X5A Adverse effect of antineoplastic and immunosuppressive drugs, initial encounter; Y92.129 Unspecified place in nursing home as the place of occurrence of the external cause; B35.1 Tinea unguium
CPT/HCPCS: 36415; 71045-TC; 80048-TC; 80053-TC; 80076-TC; 81001; 82962-TC; 83605-TC; 83735-TC; 84100-TC; 84484-TC; 85025-TC; 85730-TC; 87040-TC; 87081-TC; 87086-TC; 94760-TC; 94799-TC; A4216; C9803; G0378; J0692; J1650; J1815; J1956; J7050; J7060